=== PATIENT | male | born 1975 | race African-American/Black ===

== ENCOUNTER 2019-05-07 09:58 | Emergency (ER) | payer MEDICAID ==
[~2019-05-07] VITALS: Ht 182.9 cm; Wt 79.4 kg
[~2019-05-07 09:58] MED LIST: AUGMENTIN 875-1 EAC1 ORAL; CORTISPORIN-TC10 M1 OT; FLOXIN OTIC10 DROP RIGHT EAR; HUMULIN 70100 UNIT/3 SQ; LANTUS SOL100 UNIT/1 SUBQ; METFORMIN HCL500 M1 ORAL; NOVOLIN 70/305 UNIT1; NOVOLIN 70/305 UNIT1 SUBQ; NOVOLOG100 UNIT/3 SUBQ; OFLOXACIN5 ML OT
--- NOTE | 2019-05-07 10:08 | NUR ---
ED Nurse Note: Pt walked in from home d/t part of q-tip being stuck in his right ear. Pt denies pain. Respiratiomns even and unlabored on room air. Vitals stable as documented.
[2019-05-07 10:11] VITALS: BP 105/69
--- NOTE | 2019-05-07 10:13 | NUR ---
ED Nurse Note: foreign object removed by ED MD
--- NOTE | 2019-05-07 10:14 | Emergency Room Report ---
History of Present Illness General Chief Complaint: Earache Source: Patient Present Illness HPI 43-year-old male feels fullness in his right ear, he was using a Q-tip and part of it got stuck in his ear, denies any pain he feels a fullness no aggravating relieving factors severity is mild patient presents for evaluation Allergies: Coded Allergies: NO KNOWN DRUG ALLERGIES (Unverified Allergy, Unknown, 09/02/14) Patient History Past Medical History: see triage record Reviewed Nursing Documentation: PMH: Agreed; PSxH: Agreed Nursing Documentation-PMH Past Medical History: No History, Except For Hx Cardiac Problems: No Hx Diabetes: Yes Hx Cancer: No Hx Gastrointestinal Problems: No - Anal abscess removal in 2014 Hx Neurological Problems: No Review of Systems All Other Systems: negative except mentioned in HPI Physical Exam Vital Signs Date Time Temp Pulse Resp B/P (MAP) Pulse Ox O2 Delivery O2 Flow Rate FiO2 05/07/19 10:04 98.1 79 17 105/69 (81) 99 Room Air General Appearance: well appearing, no apparent distress Head: normocephalic, atraumatic Eyes: bilateral eye PERRL, bilateral eye EOMI ENT: hearing grossly normal, normal voice, other - Right ear canal, Q-tip cotton stuck, left TM normal Neck: full range of motion, supple Respiratory: no respiratory distress, speaking full sentences Neurologic: alert, normal gait Psychiatric: mood/affect normal Skin: no rash Procedures Additional Procedure Procedure Narrative Foreign body body removal of right Q-tip cotton utilizing curette patient tolerated procedure well No complications Medical Decision Making Diagnostic Impression: Primary Impression: Foreign body of ear, right Qualified Codes: T16.1XXA - Foreign body in right ear, initial encounter ER Course 43-year-old male presents with foreign body of the right ear, patient tolerated procedure well with removal, using a curette, disposition home with return precautions follow-up with PCP patient was advised not to use Q tips Last Vital Signs Date Time Temp Pulse Resp B/P (MAP) Pulse Ox O2 Delivery O2 Flow Rate FiO2 05/07/19 10:04 98.1 79 17 105/69 (81) 99 Room Air Disposition: HOME, SELF-CARE Condition: Stable Referrals: [facility] Patient Instructions: Ear Foreign Body, [id number] Additional Instructions: The patient was provided with discharge instructions, notified to follow-up with a primary care doctor and or specialist in the next 24-48 hours, and to return to the ED if they have worsening of their symptoms. Please note that this report is being documented using [employer] technology. This can lead to erroneous entry secondary to incorrect interpretation by the dictating instrument. Salvatore Barone MD May 07, 2019 10:14
[2019-05-07 10:20] VITALS: BP 110/74
--- NOTE | 2019-05-07 10:20 | NUR ---
ER DISCHARGE NOTE: Patient is cleared to be discharged per ERMD, pt is aox4, on room air, with stable vital signs as documented. pt was given dc and prescription instructions and was able to verbalize understanding. pt id band removed. pt is able to ambulate with steady gait. pt took all belongings.
== END 2019-05-07 10:40 | disposition home or self-care (01) ==
LOC: EMR 10:32
DX: T16.1XXA Foreign body in right ear, initial encounter (principal); E11.9 Type 2 diabetes mellitus without complications; W45.8XXA Other foreign body or object entering through skin, initial encounter; Y93.E8 Activity, other personal hygiene; Y92.9 Unspecified place or not applicable
CPT/HCPCS: 69200; Z7502; 99282

== ENCOUNTER 2020-05-22 14:37 | Emergency (ER) | payer MEDICAID ==
--- NOTE | 2020-05-22 15:00 | NUR ---
called out no answer
--- NOTE | 2020-05-22 16:00 | NUR ---
called no answer
--- NOTE | 2020-05-22 17:34 | Emergency Room Report ---
History of Present Illness General Chief Complaint: To Be Triaged Present Illness HPI Patient left prior to being seen. Had no interaction with this patient. Allergies: Coded Allergies: NO KNOWN DRUG ALLERGIES (Unverified Allergy, Unknown, 09/02/14) Nursing Documentation-H Hx Cardiac Problems: No Hx Diabetes: Yes Hx Cancer: No Hx Gastrointestinal Problems: No - Anal abscess removal in 2014 Hx Neurological Problems: No Medical Decision Making Diagnostic Impression: Primary Impression: lwbs ER Course Patient left prior to being seen. Had no interaction with this patient. Disposition: LEFT W/OUT BEING SEEN Condition: Unknown Antwan Torres MD May 22, 2020 17:34
== END 2020-05-22 16:00 | disposition left against medical advice (07) ==
LOC: EMR 15:58
DX: S99.921A Unspecified injury of right foot, initial encounter (principal); X58.XXXA Exposure to other specified factors, initial encounter; Y93.9 Activity, unspecified; Y92.9 Unspecified place or not applicable; Z53.21 Procedure and treatment not carried out due to patient leaving prior to being seen by health care provider